=== PATIENT | male | born 1980 | race Caucasian/White ===

== ENCOUNTER 2019-02-11 02:39 | Emergency (ER) | payer OTHER ==
[2019-02-11] MEDS ORDERED: ONDANSETRON ODT 4 MG PO ONE (03:00)
[2019-02-11] MEDS ORDERED: ONDANSETRON ODT 4 MG ONE (03:07)
--- NOTE | 2019-02-11 03:17 | NUR ---
LATE NOTE NICKOLAS FOR 304: First contact with pt. GREGG. Pt is AOX4, skin is pink, warm, and dry, cms intact. No vomiting observed at bedside. Pt states, "I have thrown up a few times since midnight. I took some pepto. I havn't noticed any blood." Pt denies cp, sob, diarrhea, light-headedness, dizziness. Provided pt call light, blankets, and pillows. Provided pt medicaiton per EMAR. Pt aware of need or urine sample. Pt states, "I don't think I can pee right now." Pt provided urinal. All safety measures in place. No other needs requested at this time. Emesis bag within reach.
[2019-02-11 03:26] LABS: BASOPHILS # (AUTO) 0.02 x10^3/uL (0-0.1); BASOPHILS % (AUTO) 0 % (0-1); EOSINOPHILS # (AUTO) 0.09 x10^3/uL (0-0.4); EOSINOPHILS % (AUTO) 1 % (1-7); LYMPHOCYTES # (AUTO) 1.49 x10^3/uL (1-3.4); LYMPHOCYTES % (AUTO) 15 % (22-44); MD NO; MEAN CORPUSCULAR HEMOGLOBIN 31.6 pg (27.5-34.5); MEAN CORPUSCULAR HGB CONC 33.8 g/dL (33.2-36.2); MEAN CORPUSCULAR VOLUME 93.3 fL (81-97); MEAN PLATELET VOLUME 7.4 fL (7.4-10.4); MONOCYTES % (AUTO) 4 % (2-9); NEUTROPHILS # (AUTO) 7.95 x10^3/uL (1.8-6.8); NEUTROPHILS % (AUTO) 80 % (42-75); PLATELET COUNT 243 x10^3/uL (130-400); RED BLOOD COUNT 4.75 x10^6/uL (4.38-5.82); RED CELL DISTRIBUTION WIDTH 12.9 % (9.4-14.8)
[2019-02-11 03:39] LABS: ALANINE AMINOTRANSFERASE 31 U/L (12-78); ALBUMIN 4.3 g/dL (3.4-5.0); ANION GAP 6 mmol/L (5-15); CALCIUM 9.2 mg/dL (8.5-10.1); CHLORIDE 108 mmol/L (98-107)
[2019-02-11 03:40] LABS: ALKALINE PHOSPHATASE 63 U/L (45-117); BILIRUBIN,TOTAL 0.3 mg/dL (0.2-1.0); TOTAL PROTEIN 7.2 g/dL (6.4-8.2)
[2019-02-11 03:47] VITALS: BP 140/90
--- NOTE | 2019-02-11 03:49 | NUR ---
Pt resting on gurney. ESCOBEDO. Pt c/o of 4-5/10 LLQ pain. Pt states, "my nausea has gone away." Pt provided 30 mL of water. Pt passed PO challenge.
--- NOTE | 2019-02-11 03:51 | NUR ---
Pt remains "unable to pee right now."
--- NOTE | 2019-02-11 04:24 | NUR ---
Patient given discharge instructions and they have confirmed that they understand the instructions. Patient ambulatory with steady gait. Pt left with prescription, discharge paperwork, and all personal belongings.
== END 2019-02-11 04:26 | disposition home or self-care (01) ==
LOC: ED 04:15
DX: A09 Infectious gastroenteritis and colitis, unspecified (principal); R10.13 Epigastric pain; R10.12 Left upper quadrant pain
CPT/HCPCS: 36415; 80053; 83690; 85025; 99283; Q0162

== ENCOUNTER 2019-02-11 20:11 | Emergency (ER) | payer OTHER ==
[~2019-02-11] VITALS: Ht 177.8 cm; Wt 70.6 kg
[2019-02-11] MEDS ORDERED: PROMETHAZINE 25 MG/ML, 1ML IM ONE (20:30)
[2019-02-11 21:17] LABS: BASOPHILS # (AUTO) 0.05 x10^3/uL (0-0.1); BASOPHILS % (AUTO) 1 % (0-1); EOSINOPHILS # (AUTO) 0.02 x10^3/uL (0-0.4); EOSINOPHILS % (AUTO) 0 % (1-7); LYMPHOCYTES # (AUTO) 1.34 x10^3/uL (1-3.4); LYMPHOCYTES % (AUTO) 14 % (22-44); MD NO; MEAN CORPUSCULAR HEMOGLOBIN 31.8 pg (27.5-34.5); MEAN CORPUSCULAR HGB CONC 34.4 g/dL (33.2-36.2); MEAN CORPUSCULAR VOLUME 92.5 fL (81-97); MEAN PLATELET VOLUME 7.7 fL (7.4-10.4); MONOCYTES # (AUTO) 0.42 x10^3/uL (0.2-0.8); MONOCYTES % (AUTO) 4 % (2-9); NEUTROPHILS # (AUTO) 7.96 x10^3/uL (1.8-6.8); NEUTROPHILS % (AUTO) 81 % (42-75); PLATELET COUNT 264 x10^3/uL (130-400); RED BLOOD COUNT 4.77 x10^6/uL (4.38-5.82); RED CELL DISTRIBUTION WIDTH 12.9 % (9.4-14.8)
[2019-02-11 21:32] LABS: ALBUMIN 4.5 g/dL (3.4-5.0); ANION GAP 11 mmol/L (5-15); CALCIUM 9.4 mg/dL (8.5-10.1); CHLORIDE 104 mmol/L (98-107)
[2019-02-11 21:35] LABS: ALANINE AMINOTRANSFERASE 32 U/L (12-78); ALKALINE PHOSPHATASE 69 U/L (45-117); BILIRUBIN,TOTAL 0.7 mg/dL (0.2-1.0); CREATININE 1.36 mg/dL (0.7-1.3); TOTAL PROTEIN 7.5 g/dL (6.4-8.2)
--- NOTE | 2019-02-11 23:20 | NUR ---
PT TO RM FROM LOBBY
[2019-02-11] MEDS ORDERED: PROMETHAZINE 25 MG/ML, 1ML ONE (23:25)
--- NOTE | 2019-02-11 23:31 | NUR ---
First contact w/ pt: Seen here yesterday for n/v for multiple hours. Has similar s/s today. C/o poor po intake since 1600 this pm and abd cramping after vomiting. No emesis currently in room. Would like medication per jan. Medicated at this time. Monitoring applied. VSS. Call light within reach. Friend at bedside. Awaiting MD assessment.
[2019-02-11] MEDS ORDERED: MORPHINE SULFATE 4 MG/ML, 1ML ONE (23:44)
[2019-02-12] MEDS ORDERED: SODIUM CHLORIDE 0.9% 1,000ML IVBOLUS ONE
[2019-02-12] MEDS ORDERED: SODIUM CHLORIDE FLUSH 10ML SYR IVF ONE
[2019-02-12] MEDS ORDERED: MORPHINE SULFATE 4 MG/ML, 1ML IVPush PRN
--- NOTE | 2019-02-12 00:09 | NUR ---
Pt medicated per emar, 5 rights observed, pt to ct on O2 via NC, 3 L
--- NOTE | 2019-02-12 00:15 | NUR ---
Pt to ct.
[2019-02-12] MEDS ORDERED: KETOROLAC 30 MG/1 ML IVPush ONE (01:00)
[2019-02-12] MEDS ORDERED: TAMSULOSIN 0.4 MG CAP.ER.24H PO ONE (01:00)
[2019-02-12] MEDS ORDERED: TAMSULOSIN 0.4 MG CAP.ER.24H ONE (01:09)
[2019-02-12] MEDS ORDERED: KETOROLAC 30 MG/1 ML ONE (01:10)
[2019-02-12 01:15] LABS: MICROSCOPIC AUTO
[2019-02-12 01:16] LABS: CULTURE INDICATED? NO
[2019-02-12 01:28] VITALS: BP 152/80
--- NOTE | 2019-02-12 01:29 | NUR ---
All results back. Pt up for recheck. No immediate needs from pt.
[2019-02-12] MEDS ORDERED: OMNIPAQUE 350 MG/ML, 100ML BOTTLE ONE (04:25)
== END 2019-02-12 01:51 | disposition home or self-care (01) ==
LOC: ED 02-12 00:44
DX: N20.2 Calculus of kidney with calculus of ureter (principal)
CPT/HCPCS: 36415; 74177; 80053; 81001; 83690; 85025; 96361; 96372; 96374; 96375; 99284; J1885; J2550; J7030; Q9967